=== PATIENT | female | born 1955 | race Two or more races ===

== ENCOUNTER 2017-01-24 06:01 | Day surgery (SDC) | payer MEDICAID, MEDICARE ==
[2017-01-24] VITALS (8 sets, daily range): BP systolic 116–172; BP diastolic 51–92
[~2017-01-24] VITALS: Ht 165.1 cm; Wt 74.4 kg
[~2017-01-24 06:01] MED LIST: AMARYL4 MG ORAL; CYCLOBENZAPRINE10 MG ORAL; DIOVAN HCT 80MG1 TAB ORAL; ECOTRIN81 MG PO; FISH OIL300 M1 PO; IBUPROFEN600 MG ORAL; KOMBIGLYZE XR1 EAC2 PO; LORAZEPAM1 MG ORAL; METFORMIN HCL500 M1 ORAL; OSCAL D500 MG PO; PREMPRO 0.3 MG1 EACH PO
[2017-01-24] MEDS ORDERED: METFORMIN HCL500 M1 ORAL (06:30)
[2017-01-24] MEDS ORDERED: LR 1000ml ONE (07:30)
[2017-01-24] MEDS ORDERED: Glycopyrrolate 0.2mg/ml 1ml Vial ONE (07:30)
[2017-01-24] MEDS ORDERED: Metoclopramide 10mg/2ml Inj ONE (07:30)
[2017-01-24] MEDS ORDERED: Sterile Water Irrig 1000ml IRRIG ONE (07:30)
[2017-01-24] MEDS ORDERED: Propofol 200mg/20ml IV ONE (07:30)
[2017-01-24] MEDS ORDERED: fentaNYL 100 mcg/2 mL IV ONE (07:30)
[2017-01-24] MEDS ORDERED: Ketorolac 30mg Inj ONE (07:30)
[2017-01-24] MEDS ORDERED: Zemuron 50mg/5ml Inj IV ONE (07:30)
[2017-01-24] MEDS ORDERED: Midazolam 2mg/2ml Inj ONE (07:30)
[2017-01-24] MEDS ORDERED: NS Irrig 1000ml ONE (07:30)
--- NOTE | 2017-01-24 07:37 | Pre-Procedure Note/Attestation ---
Pre-Procedure Note/Attestation Complete Prior to Procedure Planned Procedure: not applicable Procedure Narrative: D&C, Hysteroscopy, possibly polypectomy Indications for Procedure Pre-Operative Diagnosis: Endometrial thickening, possible polyp Attestation I attest that I discussed the nature of the procedure; its benefits; risks and complications; and alternatives (and the risks and benefits of such alternatives ), prior to the procedure, with the patient (or the patient's legal safety representative). I attest that, if there was a reasonable possibility of needing a blood transfusion, the patient (or the patient's legal safety representative) was given the [facility] standardized written summary, pursuant to the [place] [place] Blood Safety Act ([place] Health and Safety Code # 1645, as amended). I attest that I re-evaluated the patient just prior to the surgery and that there has been no change in the patient's H&P, except as documented below:NONE CARMELINA SCHUMACHER Jan 24, 2017 07:37
[2017-01-24] MEDS ORDERED: LR 1000ml 1,000 ML IVLG SCH (08:04)
[2017-01-24] MEDS ORDERED: fentaNYL 100 mcg/2 mL IV PRN (08:15)
[2017-01-24] MEDS ORDERED: Acetaminophen (Non formulary) 100 ML IV ONE (08:15)
[2017-01-24] MEDS ORDERED: Metoclopramide 10mg/2ml Inj IVP PRN (08:15)
[2017-01-24] MEDS ORDERED: Midazolam 2mg/2ml Inj IVP PRN (08:15)
[2017-01-24] MEDS ORDERED: Hydromorphone 0.5mg/0.5ml inj IVP PRN (08:15)
[2017-01-24] MEDS ORDERED: Ketorolac 30mg Inj IV PRN (08:15)
--- NOTE | 2017-01-24 08:19 | Anethesia Preoperative Eval ---
Anesthesia Pre-op PMH/ROS General Date of Evaluation: Jan 24, 2017 Time of Evaluation: 07:30 ASA Score: ASA 2 Mallampati Score Class I : Soft palate, uvula, fauces, pillars visible Class II: Soft palate, uvula, fauces visible Class III: Soft palate, base of uvula visible Class IV: Only hard plate visible Mallampati Classification: Class II Surgeon: Gina Diagnosis: Endometrial Polyp Surgical Procedure: D & C Anesthesia History: none Family History: no anesthesia problems Allergies: Coded Allergies: ACETAMINOPHEN (Verified Allergy, Severe, 01/23/17) HALLUCINATIONS AMOXICILLIN (Verified Allergy, Severe, 01/23/17) "SICK" ERYTHROMYCIN BASE (Verified Allergy, Severe, 01/23/17) RASH HYDROCODONE (Verified Allergy, Severe, 01/23/17) HALLUCINATIONS PENICILLINS (Verified Allergy, Severe, break out, 01/23/17) Medications: see eMAR Anesthesia Pre-op Phys. Exam Physician Exam Last Vital Signs Date Time Temp Pulse Resp B/P (MAP) Pulse Ox O2 Delivery O2 Flow Rate FiO2 01/24/17 06:33 97.2 84 18 116/58 98 Room Air Constitutional: NAD Neurologic: CN 2-12 intact Cardiovascular: RRR Respiratory: CTA Gastrointestinal: S/NT/ND Airway Exam Mallampati Score: Class II MO: full ROM: full Teeth: intact Anesthesia Pre-op A/P Studies Pre-op Studies: EKG Risk Assessment & Plan Status Change Before Surgery: Yes Pre-Antibiotics Given Within 1 Hr of Incision: Yes Time Given: 08:00 Hitesh Charles M.D. Jan 24, 2017 08:19
--- NOTE | 2017-01-24 08:22 | Immediate Post-Op Evaluation ---
Immediate Post-Op Evalulation Immediate Post-Op Evalulation Procedure: D & C Hysteroscopy Endometrial Polypectomy Date of Evaluation: Jan 24, 2017 Time of Evaluation: 09:00 IV Fluids: 1000 Blood Products: 0 Estimated Blood Loss: 0 Urinary Output: 0 Blood Pressure Systolic: 121 Blood Pressure Diastolic: 63 Pulse Rate: 67 Respiratory Rate: 16 O2 Sat by Pulse Oximetry: 99 Temperature (Fahrenheit): 98.3 Pain Score (1-10): 0 Nausea: No Vomiting: No Patient Status: awake, reacts, patent, extubated Hydration Status: adequate Given Within 1 Hr of Incision: Yes Time Given: 08:00 Hitesh Charles M.D. Jan 24, 2017 08:22
--- NOTE | 2017-01-24 08:24 | 48 Hour Post Anesthesia Eval ---
Post Anesthesia Evaluation Procedure: D & C Hysteroscopy Endometrial Polypectomy Date of Evaluation: Jan 26, 2017 Time of Evaluation: 08:00 Blood Pressure Systolic: 121 0: 63 Pulse Rate: 68 Respiratory Rate: 16 Temperature (Fahrenheit): 97 O2 Sat by Pulse Oximetry: 99 Airway: patent Nausea: No Vomiting: No Pain Intensity: 0 Hydration Status: adequate Mental Status/LOC: patient returned to baseline Follow-up care needed: patient intructions given Hitesh Charles M.D. Jan 24, 2017 08:24
--- NOTE | 2017-01-24 08:31 | Brief Operative Note ---
Immediate Post Operative Note Operative Note Pre-op Diagnosis: Endometrial thickening, possible polyp Procedure: D&C, Hysteroscopy, polypectomy Post-op Diagnosis: same as pre-op plus - 2 submucosal fibroids. One left lateral near tubal ostea, one on anterior wall of uterus - just to the right of midline Surgeon: Carmelina Schumacher Anesthesiologist: Diana SESAY Anesthesia: general Specimen: yes - ECC, EMC, Endom Polyp Complications: none Condition: stable Fluids: LR @100 ml/ hr Estimated Blood Loss: minimal - 60 cc Drains: none Implant(s) used?: No CARMELINA SCHUMACHER Jan 24, 2017 08:31
[2017-01-24] MEDS ORDERED: D5 1/2NS 1,000 ML IV SCH (15:01)
--- NOTE | 2017-01-24 23:16 | Operative Note - Dictated ---
DATE OF OPERATION: 01/24/2017 PREOPERATIVE DIAGNOSIS: Endometrial thickening with probable endometrial polyp. POSTOPERATIVE DIAGNOSES: 1. Endometrial thickening with probable endometrial polyp. 2. Submucosal fibroids. PROCEDURE PERFORMED: 1. Video hysteroscopy. 2. Endocervical curettage and endometrial curettage. 3. Extensive polypectomy. SURGEON: Cheko Fuentes M.D. ANESTHESIOLOGIST: Hitesh Charles M.D. ANESTHESIA: General. PROCEDURE IN DETAIL: After all the appropriate consents were signed, the patient was brought to the operating room, placed on table in supine position. General anesthesia was induced without complication. The patient was then prepped and draped in the usual fashion. In and out catheter was placed to empty the bladder. At this time, the cervix was grasped and dilated to admit the video hysteroscope. Hysteroscopy revealed a large polyp on the posterior floor of the uterus. There appeared to be additional masses which represented submucosal fibroids, one of these was anteriorly just to the right of the midline and the other was on the left uterine wall near and just proximal to the tubal ostium. At this time, the procedure began after fully visualizing the polyp. The polyp was then grasped and using traction counter traction, removed in its entirety in multiple attempts. The video hysteroscope was now utilized to reevaluate the area and all of the polyp was visualized to be removed in its entirety. Prior to the removal of the polyp, endocervical curettage was performed. After the removal of the polyp, endometrial curettage was performed extensively. Both endocervical curettage and endometrial curettage and polyp were submitted to pathology for evaluation. At this time, the submucosal fibroids were also evaluated. Due to patient's age, it was decided not to proceed with resection of the submucosal fibroid. At this time, the patient was once again evaluated. All the instruments removed from the vagina and the cervix was found to be completely hemostatic. The patient was then placed in the supine position and awakened from general anesthesia. She was transferred to the recovery room in excellent condition. Cheko Fuentes M.D. DR: Paul JOB#: [id number] CC: [email or web address]
== END 2017-01-24 10:30 | disposition home or self-care (01) ==
LOC: SUR 06:01
DX: N84.0 Polyp of corpus uteri (principal); D25.0 Submucous leiomyoma of uterus; Z88.0 Allergy status to penicillin; Z88.6 Allergy status to analgesic agent; Z88.8 Allergy status to other drugs, medicaments and biological substances
CPT/HCPCS: 58558; 82962; J0690; J1885; J2250; J2405; J2704; J2765; J3010; J7120; 94003; 94150

== ENCOUNTER 2017-07-15 15:08 | Emergency (ER) | payer MEDICARE ==
[~2017-07-15] VITALS: Ht 165.1 cm; Wt 72.6 kg
--- NOTE | 2017-07-15 15:46 | Emergency Room Report ---
History of Present Illness General Chief Complaint: Neck Pain Present Illness HPI 61-year-old female presents to the emergency department complaining of 10 out of 10 in severity right-sided neck pain that radiates posteriorly to the right shoulder. Patient states her symptoms have been present for 3 weeks now and describes a progressive onset. Patient was evaluated by her PMD and has finished a 1 week course of meloxicam. Patient states that she has not had any improvement of her symptoms. Patient reports that when she turns her head to the right she feels some numbness tingling sensation in the trapezius muscle area. Patient denies weakness of the right arm. Patient reports that she subsided desk and is on the computer much of the day otherwise she does a lot of cooking. Patient states she is retired. He denies trauma or fall, history of previous injury in this area, fevers, chills. Denies numbness tingling or loss of sensation or gross motor movements of the extremities, incontinence of bowel or bladder. Denies CP, Palpitations, LOC, AMS, dizziness, Changes in Vision, Sensation, paresthesias, or a sudden severe headache. Allergies: Coded Allergies: AMOXICILLIN (Verified Allergy, Severe, 01/23/17) "SICK" ERYTHROMYCIN BASE (Verified Allergy, Severe, 01/23/17) RASH HYDROCODONE (Verified Allergy, Severe, 01/23/17) HALLUCINATIONS PENICILLINS (Verified Allergy, Severe, break out, 01/23/17) Patient History Past Medical History: see triage record Past Surgical History: none Pertinent Family History: none Now: No Reviewed Nursing Documentation: PMH: Agreed; PSxH: Agreed Nursing Documentation-PMH Hx Cardiac Problems: Yes Hx Hypertension: Yes Hx Diabetes: Yes Hx Cancer: No Hx Gastrointestinal Problems: No Hx Neurological Problems: No Review of Systems All Other Systems: negative except mentioned in HPI Physical Exam Vital Signs Date Time Temp Pulse Resp B/P (MAP) Pulse Ox O2 Delivery O2 Flow Rate FiO2 07/15/17 15:15 98.3 101 20 120/61 95 Room Air 98.2 Sp02 EP Interpretation: reviewed, normal General Appearance: no apparent distress, alert, GCS 15, non-toxic Head: normocephalic, atraumatic ENT: hearing grossly normal, normal voice Neck: full range of motion, tender lateral - right lateral ttp, other - no midline ttp, obvious step-off or deformity noted. Respiratory: lungs clear, normal breath sounds, speaking full sentences Cardiovascular #1: regular rate, rhythm Cardiovascular #2: 2+ radial (R) Musculoskeletal: back normal, gait/station normal, normal range of motion, tender - Localized ttp to the Right Trapezius, FROM of neck, no midline neck tenderness. Neurologic: alert, oriented x3, responsive, motor strength/tone normal, sensory intact, normal gait, speech normal, grossly normal Psychiatric: judgement/insight normal Skin: normal color, no rash, warm/dry, well hydrated Lymphatic: no adenopathy, other - no LAD of occipital nodes. Medical Decision Making PA Attestation Dr. Tillman is my supervising Physician whom patient management has been discussed with. Diagnostic Impression: Primary Impression: Muscle spasm Additional Impression: Strain of cervical portion of right trapezius muscle ER Course 61-year-old female presents to the emergency department complaining of 10 out of 10 in severity right-sided neck pain that radiates posteriorly to the right shoulder. Patient states her symptoms have been present for 3 weeks now and describes a progressive onset. Patient was evaluated by her PMD and has finished a 1 week course of meloxicam. Patient states that she has not had any improvement of her symptoms. Patient reports that when she turns her head to the right she feels some numbness tingling sensation in the trapezius muscle area. Patient denies weakness of the right arm. Patient reports that she subsided desk and is on the computer much of the day otherwise she does a lot of cooking. Patient states she is retired. He denies trauma or fall, history of previous injury in this area, fevers, chills. Denies numbness tingling or loss of sensation or gross motor movements of the extremities, incontinence of bowel or bladder. Denies CP, Palpitations, LOC, AMS, dizziness, Changes in Vision, Sensation, paresthesias, or a sudden severe headache. Ddx considered but are not limited to Fracture, dislocation, contusion, Sprain/ Strain/Spasm, Epidural abscess, Neoplastic mets. Vital signs: are WNL, pt. is afebrile H&PE are most consistent with: Muscle spasm/strain. Will perform imaging to r/o fractures or bony abnormalities. Localized ttp to the Right Trapezius, FROM of neck, no midline neck tenderness. this is most consistent with muscle spasm/ strain, her intermittent paresthesia in the right trapezius area upon turning head to the right may be from a nerve Impingement Syndrome. ORDERS: - X-ray C-Spine - negative for fx, Dislocation, or significant soft tissue injury, per preliminary read in ED, and signed by HERI Alonso, my supervising physician has reviewed, and agrees with my interpretation. ED INTERVENTIONS: - Tylenol PO . Discussed with this patient that I do not find an acute emergent condition at this time and that it would be most appropriate for her to follow-up with an claim benefit specialist and her primary care doctor if her symptoms persist as she may require further evaluation such as MRI or treatment such as physical therapy. DISCHARGE: At this time pt. is stable for d/c to home. Will provide printed patient care instructions, and any necessary prescriptions. Care plan and follow up instructions have been discussed with the patient prior to discharge. Other X-Ray Diagnostic Results Other X-Ray Diagnostic Results : X-Ray ordered: C-Spine # of Views/Limited Vs Complete: 3 View Indication: Pain - right lateral ttp EP Interpretation: Yes HERI Xray: Interpretation reviewed, by supervising MD, and agrees with findings. Interpretation: no dislocation, no soft tissue swelling, no fractures Impression: No acute disease Electronically Signed by: Leslie Alonso PA-C Last Vital Signs Date Time Temp Pulse Resp B/P (MAP) Pulse Ox O2 Delivery O2 Flow Rate FiO2 07/15/17 15:15 98.3 101 20 120/61 95 Room Air 98.2 Status: improved Disposition: HOME, SELF-CARE Condition: Stable Scripts Lidocaine (Lidoderm) 1 Each Adh..patch 1 PATCH TOPIC DAILY, #30 PATCH 0 Refills Patch(es) may remain in place for up to 12 hours in any 24-hour period. Prov: Leslie Alonso 07/15/17 Methocarbamol* (ROBAXIN-750*) 750 Mg Tablet 750 MG PO TID for 7 Days, #21 TAB 0 Refills Prov: Leslie Alonso 07/15/17 Referrals: NON PHYSICIAN (PCP) Patient Instructions: Medical Screening Exam, Muscle Pain, Adult Additional Instructions: Take medications as directed. Follow up with your Primary Care Provider in 3-5 days, For Orthopedic/ spinal referral Return sooner to ED if new symptoms occur, or current symptoms become worse. Do not drink alcohol, drive, or operate heavy machinery while taking Robaxin as this may cause drowsiness. - Please note that this Emergency Department Report was dictated using [employer] armature tester technology software, occasionally this can lead to erroneous entry secondary to interpretation by the dictation equipment. Leslie Alonos Jul 15, 2017 15:46
--- NOTE | 2017-07-15 16:44 | Diagnostic Imaging Report ---
Indication: Neck Pain Findings: 3 views of the cervical spine were obtained. Bones are osteopenic. There is mild anterolisthesis of C4-5 and generalized straightening of the cervical spine noted. Mild narrowing of the C5-6 disc also noted. No fracture seen. IMPRESSION: No acute findings identified
[2017-07-15] MEDS ORDERED: LIDODERM700 M1 TOPIC (16:57)
[2017-07-15] MEDS ORDERED: ROBAXIN-750750 MG PO (16:57)
[2017-07-15 17:17] VITALS: BP 123/75
== END 2017-07-15 17:17 | disposition home or self-care (01) ==
LOC: EMR 15:29
DX: S16.1XXA Strain of muscle, fascia and tendon at neck level, initial encounter (principal); M62.838 Other muscle spasm; R53.1 Weakness; Z88.0 Allergy status to penicillin; Z88.8 Allergy status to other drugs, medicaments and biological substances; I10 Essential (primary) hypertension; E11.9 Type 2 diabetes mellitus without complications; X58.XXXA Exposure to other specified factors, initial encounter; Y93.9 Activity, unspecified; Y92.9 Unspecified place or not applicable
CPT/HCPCS: 72040; 99284

== ENCOUNTER 2017-09-10 12:55 | Outpatient (CLI) | payer MEDICARE ==
[~2017-09-10 12:55] MED LIST changes: +LIDODERM700 M1 TOPIC; +ROBAXIN-750750 MG PO
--- NOTE | 2017-09-10 14:40 | Diagnostic Imaging Report ---
Indication: And neck pain with pain radiating down right shoulder Technique: Sagittal T1 FLAIR PROPELLER, sagittal T2 PROPELLOR, sagittal STIR, axial T2 PROPELLER, axial 3D COSMIC ASPIR images were obtained through the cervical spine Comparison: Plain radiograph dated 07/15/2017 Findings: There is slight straightening of the normal cervical lordosis, otherwise normal bony alignment. No prevertebral soft tissue swelling. Vertebral marrow signal is normal. No significant disc narrowing is demonstrated. Intrinsic cord signal is normal At C3-4, there is a posterolateral focal disc protrusion which is in the subarticular zone, may intrude into the right lateral recess and could conceivably compress the C4 nerve root. This extends approximately 2 mm beyond the expected posterolateral margin of the disc. No significant disc bulge or protrusion. However, short pedicles also result in mild narrowing of the spinal canal to minimum AP dimension of 9 mm. The disc space is preserved. There is mild narrowing of the right neural foramen at this level. The left neural foramen is preserved At C5-6, there is circumferential annular bulge as well as broad-based central posterior disc protrusion. This is mostly symmetric but perhaps slightly worse on the left. This, in combination with ligament flavum hypertrophy and congenital short pedicles, results in moderate narrowing of the spinal canal to 8-9 mm minimum AP dimension. The neural foramina are preserved. There is some impingement upon the anterior aspect of the cord At C6-7, there is mild narrowing of the spinal canal predominantly due to short pedicles, as well as ligament flavum hypertrophy; spinal canal narrowed to minimum 9 mm AP diameter. No definite cord impingement demonstrated. The neural foramina are preserved At C7-T1, there is minimal circumferential annular bulge which does not seriously compromise the spinal canal. No significant disc bulge or protrusion, spinal stenosis, or neural foraminal narrowing. At the remaining levels, no significant disc bulge or protrusion, spinal stenosis, or neural foraminal stenosis demonstrated. The included extraspinal soft tissues are unremarkable. Impression: At C3-4, there is a focal right subarticular zone disc protrusion which may compromise the lateral recess and therefore the C4 nerve root. Correlate with clinical findings. Borderline spinal stenosis at this level is also noted At C5-6, circumferential annular bulge and short pedicles and ligamentum flavum hypertrophy result in moderate narrowing of the spinal canal and possible impingement upon the anterior aspect of the cord Other degenerative changes as delineated on a level by level basis above
== END 2017-09-10 14:55 | disposition home or self-care (01) ==
LOC: MRI 12:55
PROVIDERS: ATTEND Internal Medicine
DX: M54.12 Radiculopathy, cervical region (principal); M25.511 Pain in right shoulder
CPT/HCPCS: 72141